=== PATIENT | male | born 1960 | race Two or more races ===

== ENCOUNTER 2019-02-14 10:35 | Outpatient (CLI) | payer OTHER | END 2019-02-14 10:44 | disposition home or self-care (01) | LOC: SONOGRAMA 10:35 | DX: N40.1 Benign prostatic hyperplasia with lower urinary tract symptoms (principal) ==

== ENCOUNTER 2021-05-24 12:06 | Outpatient (CLI) | payer OTHER | END 2021-05-24 12:10 | disposition home or self-care (01) | LOC: TOM 12:06 | DX: R51.9 Headache, unspecified (principal) ==

== ENCOUNTER → 2021-05-24 | Outpatient (CLI) | payer OTHER | END | disposition home or self-care (01) | LOC: NUCLEAR 11:32 | DX: R09.89 Other specified symptoms and signs involving the circulatory and respiratory systems (principal) ==